=== PATIENT | female | born 1995 | race African-American/Black ===

== ENCOUNTER 2018-03-02 09:22 | Inpatient (IN) | payer SELFPAY ==
[~2018-03-02] VITALS: Ht 160 cm; Wt 59.1 kg
[2018-03-02] MEDS ORDERED: SODIUM CHLORIDE 0.9% 1,000 ML IV ONE (09:37)
[2018-03-02] MEDS ORDERED: DEXT 5% IV ONE ×2 (10:00→11:30)
[2018-03-02] MEDS ORDERED: ONDANSETRON HCL 4MG/2ML VIAL IV ONE (10:00)
[2018-03-02] MEDS ORDERED: ACETYLCYSTEINE IV ONE ×3 (10:00→15:30)
[2018-03-02] MEDS ORDERED: WATER IV ONE ×3 (10:00→15:30)
[2018-03-02 10:03] LABS: HEMATOCRIT. 43.8 % (36.0-48.0); HEMOGLOBIN. 15.1 g/dL (12.0-16.0); MEAN CORPUSCULAR HEMOGLOBIN 32.7 pg (28.0-32.0); MEAN CORPUSCULAR VOLUME 95.1 fL (81.0-99.0); MEAN PLATELET VOLUME 8.7 fl (7.4-10.4); PLATELET 317 x1000/uL (130-400); RED BLOOD CELL COUNT 4.61 mill/uL (4.2-5.4); RED CELL DISTRIBUTION WIDTH 12.9 % (11.6-14.6)
[2018-03-02 10:13] LABS: CHLORIDE 106 mEq/L (98-107); PARTIAL THROMBOPLASTIN TIME 25.7 sec (23.4-31.0); PROTHROMBIN TIME 10.7 sec (9.4-11.6)
[2018-03-02 10:18] LABS: ETHANOL BLOOD < 10 mg/dL
[2018-03-02 10:29] LABS: HCG SCREEN NEGATIVE
[2018-03-02 10:42] LABS: PLATELET ESTIMATE NORMAL
[2018-03-02 10:56] LABS: CLARITY URINE CLEAR (CLEAR); COLOR URINE YELLOW (YELLOW); KETONES URINE NEGATIVE (NEGATIVE); LEUKOCYTE ESTERASE URINE NEGATIVE (NEGATIVE); NITRITE URINE NEGATIVE (NEGATIVE); OCCULT BLOOD URINE NEGATIVE (NEGATIVE); PH URINE 7.5 (4.5-8.0); PROTEIN URINE NEGATIVE (NEGATIVE); SPECIFIC GRAVITY URINE 1.025 (1.005-1.030); UROBILINOGEN URINE 0.2 E.U./dL (0.2-1.0)
[2018-03-02 11:25] LABS: *BENZODIAZEPINES SCREEN URINE NEGATIVE (NEGATIVE)
[2018-03-02 11:26] LABS: *AMPHETAMINES SCREEN URINE NEGATIVE (NEGATIVE); *BARBITURATES SCREEN URINE NEGATIVE (NEGATIVE); *COCAINE SCREEN URINE NEGATIVE (NEGATIVE); METHADONE URINE SCREEN NEGATIVE (NEGATIVE)
[2018-03-02 11:27] LABS: CANNABINOID URINE SCREEN NEGATIVE (NEGATIVE); OPIATES URINE SCREEN NEGATIVE (NEGATIVE); PHENCYCLIDINE URINE SCREEN NEGATIVE (NEGATIVE)
[2018-03-02] MEDS ORDERED: DEXTROSE 5% IV ONE (15:30)
[2018-03-02] MEDS ORDERED: MAGNESIUM/ALUMINUM HYDROXIDE/SIMETHICONE 30ML UDC PO PRN (15:45)
[2018-03-02] MEDS ORDERED: IPRATROPIUM/ALBUTEROL 0.5-3(2.5)MG/3ML NEB INH PRN (15:45)
[2018-03-02] MEDS ORDERED: ONDANSETRON HCL 4MG/2ML VIAL IV PRN (15:45)
[2018-03-02] MEDS ORDERED: DIPHENHYDRAMINE 50MG/ML VIAL IV PRN (15:45)
[2018-03-02 16:40] VITALS: BP 135/82
[2018-03-02 17:24] VITALS: BP 135/82
[2018-03-02] MEDS ORDERED: ALBU18HF2 IH (17:24)
[2018-03-02] MEDS: SODIUM CHLORIDE 0.9% 1,000 ML IV SCH (19:04)
[2018-03-02 20:00] VITALS: BP 126/82
[2018-03-03] VITALS: BP 107/65
[2018-03-03 04:00] VITALS: BP 108/59
[2018-03-03] MEDS: SODIUM CHLORIDE 0.9% 1,000 ML IV SCH (06:09)
[2018-03-03 08:00] VITALS: BP 117/73
[2018-03-03 08:21] LABS: BASOPHILS % 0.5 % (0.0-2.0); EOSINOPHILS % 0.6 % (0.0-5.0); HEMATOCRIT. 39.1 % (36.0-48.0); HEMOGLOBIN. 13.3 g/dL (12.0-16.0); LYMPHOCYTES % 35.7 % (20.0-50.0); MEAN CORPUSCULAR VOLUME 96.7 fL (81.0-99.0); MONOCYTES % 7.4 % (2.0-8.0); NEUTROPHILS % 55.8 % (40.0-76.0); PLATELET 252 x1000/uL (130-400); RED BLOOD CELL COUNT 4.04 mill/uL (4.2-5.4); RED CELL DISTRIBUTION WIDTH 13.7 % (11.6-14.6)
[2018-03-03 11:24] LABS: CHLORIDE 108 mEq/L (98-107)
[2018-03-03 11:37] LABS: PHOSPHORUS 2.4 mg/dL (2.5-4.9)
[2018-03-03 12:00] VITALS: BP 121/64
[2018-03-03 16:00] VITALS: BP 97/50
[2018-03-03 19:48] VITALS: BP 119/84
== END 2018-03-03 19:40 | disposition home or self-care (01) | DRG 812 ==
LOC: ER 09:22 → EDBEDREQSVC 10:38 → 7WST 11:13 → EDBEDREQ 11:20 → EDBEDREQTM 11:20 → ENRESERV 15:21 → CANBEDREQ 16:21
PROVIDERS: ADMIT Internal Medicine; ATTEND Internal Medicine
DX: T39.1X2A Poisoning by 4-Aminophenol derivatives, intentional self-harm, initial encounter (principal); R45.851 Suicidal ideations; T45.0X2A Poisoning by antiallergic and antiemetic drugs, intentional self-harm, initial encounter; F32.9 Major depressive disorder, single episode, unspecified; J45.909 Unspecified asthma, uncomplicated; Y92.89 Other specified places as the place of occurrence of the external cause
CPT/HCPCS: 36415; 71045; 80053; 80305; 80307; 80329; 81003; 81025; 82962; 83690; 83735; 84100; 84703; 85025; 85610; 85730; 93005; 96365; 96366; 96367; 99285; G0482; J0132; J2405; J7030; J7060